=== PATIENT | male | born 1955 | race African-American/Black ===

== ENCOUNTER 2018-04-04 22:55 | Emergency (ER) | payer SELFPAY ==
[~2018-04-04] VITALS: Ht 182.9 cm; Wt 74.8 kg
[~2018-04-04 22:55] MED LIST: MECL25 PO; Z.0.NO CURRENT MEDS
[2018-04-04 23:08] VITALS: BP 141/67; PULSE 71; RESP 18; TEMP 97.9; O2SAT 99
[2018-04-04] MEDS ORDERED: AZITHROMYCIN PWD FOR SUSP 1 GM PACKET PO ONE (23:45)
[2018-04-04] MEDS ORDERED: cefTRIAXone 250 MG VIAL IM ONE (23:45)
[2018-04-04] MEDS ORDERED: LIDOCAINE HCL 1% 50 ML VIAL XX ONE (23:45)
--- NOTE | 2018-04-04 23:56 | PD ---
HPI Chief Complaint: Complaint Time Seen by Provider: 23:28 Travel History International Travel<30 days: No Contact w/Intl Traveler<30days: No Traveled to known affect area: No History of Present Illness HPI 62yo M with PMH of STI treated here stating he has STI. Said he has whitish penile discharge and dysuria today. Denies any fever, chest pain, sob, n/v, abdominal pain, focal weakness or numbness. PFSH Past Medical History Medical History: Denies Significant Hx Diminished Hearing: No Menopausal: Yes Past Surgical History Surgical History: No Previous Surgery Social History Alcohol Use: No Tobacco Use: No Substance Use: No Allergies-Medications (Allergen,Severity, Reaction): Coded Allergies: olive extract (Unverified Allergy, Severe, 04/04/18) Reported Meds & Prescriptions Reported Meds & Active Scripts Active Antivert (Meclizine HCl) 25 Mg Tab 25 Mg PO [id number] Reported No Current Meds (Miscellaneous Medication) Misc Review of Systems Except as stated in HPI: all other systems reviewed are Neg Physical Exam Narrative GENERAL: 62yo M not in distress. SKIN: Focused skin assessment warm/dry. HEAD: Atraumatic. Normocephalic. EYES: Pupils equal and round. No scleral icterus. No injection or drainage. ENT: No nasal bleeding or discharge. Mucous membranes pink and moist. NECK: Trachea midline. No JVD. CARDIOVASCULAR: Regular rate and rhythm. No murmur appreciated. RESPIRATORY: No accessory muscle use. Clear to auscultation. Breath sounds equal bilaterally. GASTROINTESTINAL: Abdomen soft, non-tender, nondistended. : +Whitish/clear penile discharge. No rash on penis. No testicular ttp. MUSCULOSKELETAL: No obvious deformities. No clubbing. No cyanosis. No edema. NEUROLOGICAL: Awake and alert. No obvious cranial nerve deficits. Motor grossly within normal limits. Normal speech. PSYCHIATRIC: Appropriate mood and affect; insight and judgment normal. Data Data Last Documented VS Vital Signs Date Time Temp Pulse Resp B/P (MAP) Pulse Ox O2 Delivery O2 Flow Rate FiO2 04/04/18 23:08 97.9 71 18 141/67 (91) 99 Orders Orders Gc And Chlamydia Pcr (04/04/18 23:34) Azithromycin Powd Pack (Zithromax Powd P (04/04/18 23:45) Ceftriaxone Inj (Rocephin Inj) (04/04/18 23:45) Lidocaine 1% Inj (50 Ml) (Xylocaine 1% I (04/04/18 23:45) Lidocaine Pf 1% Inj (Xylocaine-Mpf 1% In (04/05/18 00:19) MDM Medical Decision Making Medical Screen Exam Complete: Yes Emergency Medical Condition: Yes Differential Diagnosis Gonorrhea vs. chlamydia Narrative Course 62yo M with penile discharge and burning with urination today. Has had STI before. Sexually active with one person. Pt is heterosexual and denies anal intercourse. He was given ceftriaxone with lidocaine and azithromycin. Advised him to treat his partner as well. Return precautions given. Diagnosis Primary Impression: STI (sexually transmitted infection) Patient Instructions: General Instructions Departure Forms: Tests/Procedures Additional Instructions: Please follow up with your primary care physician. Return to the ED if symptoms worsen. Med/Other Pt SpecificInfo: No Change to Meds Disposition: 01 DISCHARGE HOME Condition: Stable Alea Pineda DO Apr 04, 2018 23:56
[2018-04-05] MEDS ORDERED: LIDOCAINE HCL 1% PF 5 ML AMPULE ONE (00:19)
[2018-04-05 01:00] VITALS: BP 160/78
== END 2018-04-05 01:09 | disposition home or self-care (01) ==
LOC: PHED 22:55
DX: A64 Unspecified sexually transmitted disease (principal)
CPT/HCPCS: 87491; 87591; 96372; 99283; J0696